=== PATIENT | female | born 2000 | race Caucasian/White ===

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

== ENCOUNTER → 2021-01-05 | Outpatient (CLI) | payer OTHER ==
[2021-01-05 11:31] LABS: EOS # 0.1 (0.04-0.40); EOS % 1.4 % (0.1-4.0); HEMATOCRIT 39.3 % (35.0-45.0); HEMOGLOBIN 12.9 g/dL (12.0-15.0); LYMPH# 2.4 (1.20-3.40); MEAN CELL VOLUME 90 fl (78-95); MEAN CORPUSCULAR HEMOGLOBIN 29 pg (26-32); MEAN CORPUSCULAR HGB CONC 33 g/dL (33-37); MEAN PLATELET VOLUME 10.3 fl (7.4-10.4); MONO # 0.3 (0.10-0.60); NEU # 2.3 (1.40-6.50); PLATELET COUNT 289 K/mm3 (130-400); RED BLOOD COUNT 4.39 M/mm3 (4.10-5.30); RED CELL DISTRIBUTION WIDTH 12.9 % (11.5-14.5); WHITE BLOOD COUNT 5.1 K/mm3 (4.8-10.8)
[2021-01-05 11:39] LABS: ALBUMIN 4.6 g/dL (3.5-5.0); POTASSIUM 3.6 mmol/L (3.5-5.1)
[2021-01-05 11:40] LABS: CALCIUM 9.1 mg/dL (8.3-10.5)
[2021-01-05 11:41] LABS: TOTAL PROTEIN 7.2 g/dL (6.4-8.3)
[2021-01-05 11:43] LABS: TOTAL BILIRUBIN 0.8 mg/dL (0.2-1.2)
== END ==
LOC: LAB 11:16
PROVIDERS: Physician Assistant
DX: F41.8 Other specified anxiety disorders (principal); D64.9 Anemia, unspecified

== ENCOUNTER → 2021-02-17 | Outpatient (CLI) | payer OTHER | LOC: LAB 09:25 | DX: N39.0 Urinary tract infection, site not specified (principal) ==

== ENCOUNTER → 2021-04-07 | Outpatient (CLI) | payer OTHER | LOC: LAB 07:01 | DX: Z20.822 Contact with and (suspected) exposure to COVID-19 (principal) ==

== ENCOUNTER → 2021-04-08 | Outpatient (CLI) | payer OTHER | LOC: RAD 12:30 | DX: N64.4 Mastodynia (principal) ==

== ENCOUNTER → 2021-07-22 | Outpatient (CLI) | payer OTHER ==
[2021-07-22 15:33] LABS: BASO # 0.02 (0.02-0.10); EOS % 2.2 % (0.1-4.0); HEMATOCRIT 39.4 % (35.0-45.0); HEMOGLOBIN 12.8 g/dL (12.0-15.0); LYMPH# 2.07 (1.20-3.40); MEAN CELL VOLUME 91 fl (78-95); MEAN CORPUSCULAR HEMOGLOBIN 30 pg (26-32); MEAN CORPUSCULAR HGB CONC 33 g/dL (33-37); MEAN PLATELET VOLUME 10.2 fl (7.4-10.4); MONO # 0.33 (0.10-0.60); NEU # 1.93 (1.40-6.50); PLATELET COUNT 299 K/mm3 (130-400); RED BLOOD COUNT 4.34 M/mm3 (4.10-5.30); WHITE BLOOD COUNT 4.5 K/mm3 (4.8-10.8)
[2021-07-22 15:53] LABS: ALBUMIN 4.3 g/dL (3.5-5.0); POTASSIUM 3.7 mmol/L (3.5-5.1)
[2021-07-22 15:54] LABS: CALCIUM 9.6 mg/dL (8.3-10.5)
[2021-07-22 15:55] LABS: TOTAL PROTEIN 7.3 g/dL (6.4-8.3)
[2021-07-22 15:57] LABS: TOTAL BILIRUBIN 0.5 mg/dL (0.2-1.2)
== END ==
LOC: LAB 15:17
PROVIDERS: Physician Assistant
DX: Z13.1 Encounter for screening for diabetes mellitus (principal); R53.83 Other fatigue; K90.9 Intestinal malabsorption, unspecified; Z72.4 Inappropriate diet and eating habits